=== PATIENT | female | born 1985 | race Asian ===

== ENCOUNTER 2024-10-15 09:39 | Emergency (ER) | payer BC, SELFPAY ==
[2024-10-15 09:45] VITALS: BP 147/95
--- NOTE | 2024-10-15 10:18 | ED.GENMED ---
History of Present Illness
General
Chief Complaint: Back Pain
Time Seen by Provider: 10/15/24 10:05
History of Present Illness
History of Present Illness:
39-year-old female with history of hypertension diabetes presenting to the emergency department for back pain. Patient reports symptoms started yesterday. Notes a day prior she was wearing heels and did trip twice, however denies any direct
injuries to her back. She reports left thoracic back pain, worse with any type of movement. Denies numbness or tingling to her extremities. Denies fever or recent illness. She has not tried any medications for pain. She denies any bowel or
bladder issues. Denies additional acute medical complaints.
Phy Exam
Physical Exam
Physical Exam:
General: Well-appearing, no clinical signs of dehydration, nontoxic and in no acute distress
HEENT: protecting airway
Neck: appears supple
CV: Normal heart rate
Resp: No accessory muscle use, no increased work of breathing
Abd: No distention, no tenderness
Extremities: No deformities, no swelling. No midline spinal tenderness. Generalized tenderness to the left thoracic midline back extending into the lumbar back. No overlying skin changes
Neuro: alert, no focal neurologic deficit
: deferred
Rectal: deferred
Psych: Normal affect
Skin: Intact
Course
Orders/Labs/Results
Orders:
Orders
10/15/24 10:16
Cyclobenzaprine HCl [Flexeril] 10 mg PO NOW STA
Ketorolac [Toradol] 30 mg IM NOW STA
Lidocaine [Lidocaine 4% Patch] 1 patch TOPICAL ONCE ONE
Apply Lidocaine patch(s) to:: L-thoracic
Vital Signs
Initial and Last Documented VS:
Initial Vital Signs
Temp Pulse Resp BP Pulse Ox
98.1 F 67 18 147/95 100
10/15/24 09:45 10/15/24 09:45 10/15/24 09:45 10/15/24 09:45 10/15/24 09:45
Last Documented Vital Signs
Temp Pulse Resp BP Pulse Ox
98.1 F 67 18 147/95 100
10/15/24 09:45 10/15/24 09:45 10/15/24 09:45 10/15/24 09:45 10/15/24 09:45
MDM/Problems Addressed
MDM/Problems Addressed:
39-year-old female with history of hypertension and diabetes presenting for left-sided back pain. Vital signs are significant for mild hypertension.
On exam patient is well-appearing, no acute distress or discomfort. Generalized tenderness to the left thoracic and lumbar musculature. Symptoms appear most consistent with musculoskeletal etiology, muscle spasm. Do not suspect any concerning
etiology to patient's presenting symptoms. Do not suspect any spinal fracture in the absence of any direct trauma, and no midline spinal tenderness. No fever, systemic symptoms, or midline tenderness, without concern for spinal abscess or
infection. No red flag such as bowel or bladder incontinence, focal weakness, or any sensory deficits on exam, without present concern for spinal compression. Will treat with Toradol, muscle relaxer, lidocaine patch. Otherwise feel stable for
discharge. Will provide prescriptions. Will also provide prescription for Medrol Dosepak, however cautioned against steroids in diabetics and monitoring sugars. Patient verbalized understanding
*Critical Care Note
Total Time (30-74mins, 75-104mins- exclusive of procedures): Not Applicable
ED Attending Note
-
Portions of this chart may have been created with voice recognition software.� Occasional wrong word or��sound alike� substitutions may have occurred due to the inherent limitations of voice recognition software.
Discharge Plan
Departure
Patient Disposition: Home (Routine Discharge)
Date of Disposition: 10/15/24
Time of Disposition: 10:23
Patient with high blood pressure during this ER visit?: Yes
Condition: Good
Discharge Problem:
Back muscle spasm
Instructions: Low Back Pain (DC)
Prescriptions:
New
ibuprofen 600 mg tablet
600 mg PO Q8H PRN (Reason: Pain) Qty: 20 0RF
cyclobenzaprine 10 mg tablet
10 mg PO BID 5 Days Qty: 10 0RF
lidocaine 4 % adhesive patch,medicated
1 patch topical BID PRN (Reason: Pain) Qty: 10 0RF
methylprednisolone [Medrol (Tahir)] 4 mg tablets,dose pack
See Rx Instructions .ROUTE .COMPLEX Qty: 21 0RF
Rx Instructions:
for 6 days
Activity Restrictions/Additional Instructions:
You were seen in the emergency department for back pain
You are suspected to have muscle spasm
Please follow-up closely with your primary care physician.
Return to the emergency department for any worsening of your symptoms, or any development of chest pain, difficulty breathing, abdominal pain with persistent vomiting and inability to tolerate food or liquid by mouth (concern for dehydration),
weakness, headache or confusion, fever greater than 100.4, or any additional symptoms that are concerning to you.
Thank you for choosing [facility].
Interventions
Interventions:
*Risk Screen - Suicide Last Done: 10/15/24 09:45
*General Assessment Last Done: 10/15/24 09:45
*Neglect/Abuse Screening Last Done: 10/15/24 09:45
ED- Fall Risk Assessment Last Done: 10/15/24 10:38
*ED COVID-19 Vaccine History Last Done: 10/15/24 09:45
*Nursing Disposition Last Done: 10/15/24 10:45
ED-Musculoskeletal Assessment Last Done: 10/15/24 10:38
Discharge Date and Time
Discharge Date/Time: 10/15/24 10:45
Print Language: DIVEHI
[2024-10-15] MEDS: FLEXERIL 10 MG PO (10:30)
[2024-10-15] MEDS: LIDOCAINE 4% PATCH 1 PATCH TOPICAL (10:30)
[2024-10-15] MEDS: TORADOL 30 MG IM (10:33)
== END 2024-10-15 10:45 | disposition home or self-care (01) ==
LOC: EMR 09:39
PROVIDERS: EMERGENCY PHYSICIAN Student in an Organized Health Care Education/Training Program; FAMILY PHYSICIAN Student in an Organized Health Care Education/Training Program
DX: M62.830 Muscle spasm of back (principal); I10 Essential (primary) hypertension; E11.9 Type 2 diabetes mellitus without complications
CPT/HCPCS: 99284; 96372